=== PATIENT | male | born 1985 | race Caucasian/White ===

== ENCOUNTER 2017-01-26 16:21 | Emergency (ER) | payer BC ==
[2017-01-26 16:34] VITALS: BP 149/93
--- NOTE | 2017-01-26 17:05 | ERNOTE ---
Lower Extremity HPI - General Lower Extremities Pain: ankle: right Time Seen by Provider: 01/26/17 16:49 Source: patient Exam Limitations: no limitations - Immun/Allergies/Home Medications Immunizations: IMMUNIZATION HX Immunizations Up to Date Yes History of Influenza Vaccine Yes Hx Pneumococcal Vaccination Yes Allergies/Adverse Reactions: Allergies Allergy/AdvReac Type Severity Reaction Status Date / Time No Known Allergies Allergy Verified 01/26/17 16:34 Home Medications: HOME MEDICATIONS NK [No Home Medication] 01/26/17 [Last Taken Unknown] - History of Present Illness Narrative: Patient sprained his ankle playing softball and while is able to walk on it he still has some persistent pain after the event happened 5 days ago. He rates the pain as mild he is able to walk on it was a little work however. Occurred: last week Location of Incident: [place] Method of Injury: Reports: twisted Loss of Consciousness: Reports: no loss of consciousness Review of Systems - Review of Systems Constitutional: Present: See HPI EYE: Present: no symptoms reported ENT: Present: no symptoms reported Respiratory: Present: no symptoms reported Cardiology: Present: no symptoms reported Gastrointestinal/Abdominal: Present: no symptoms reported Genitourinary: Present: no symptoms reported Musculoskeletal: Present: See HPI Skin: Present: no symptoms reported Neurological: Present: no symptoms reported Endocrine: Present: no symptoms reported Hematologic/Lymphatic: Present: no symptoms reported Psych: Present: no symptoms reported - Patient's Past Medical History Patient History - Medical: No pertinent hx, Other Patient History - Cardiac/Respiratory: No pertinent hx Patient History - Cancer: No Hx of Cancer Patient History - Surgical Procedures: Appendectomy, Ear Tubes Patient History - Other: None - Family History Father Family History - Medical: Diabetes Type 2 Family History - Cardiac/Respiratory: Hyperlipidemia, Sleep Apnea Mother Family History - Medical: No pertinent hx Family History - Cardiac/Respiratory: Hyperlipidemia Brother Family History - Medical: No pertinent hx Family History - Cardiac/Respiratory: Sleep Apnea - Social History Living Situations: home Abuse History: No History of abuse Psych History: No pertinent hx Alcohol Use: none Drug Use: none - Immunizations Immunizations Up to Date: Yes Hx Pneumococcal Vaccination: Yes History of Influenza Vaccine: Yes Physical Exam - Physical Exam General Appearance: Present: wd/wn, alert, mild distress Eye Exam: Normal inspection: bilateral, PERRL: bilateral Ears, Nose, Throat: Present: normal ENT inspection, H, normal pharynx Neck: Present: normal inspection, nontender Respiratory: Present: no respiratory distress, normal breath sounds, no accessory muscle use, chest nontender, lungs clear Cardiovascular/Chest: Present: regular rate, rhythm, no murmur, normal peripheral pulses Gastrointestinal/Abdominal: Present: normal bowel sounds, nontender, nondistended, soft, no organomegaly Rectal Exam: Present: deferred Back Exam: Present: normal inspection, normal range of motion Extremity Exam: Present: non-tender, normal range of motion, no edema, other - patient has mild tenderness around the right lateral malleolus. Neurological Exam: Present: alert, oriented, normal mood/affect Skin Exam: Present: normal color, warm/dry Lymphatic Exam: Present: no adenopathy ED Progress - Vital Signs Patient's Vital Signs:: I have reviewed the patient's vital signs. Vital Signs: Vital Signs 01/26/17 16:27 Temperature 37.2 C Pulse Rate 67 Respiratory 16 Rate Blood Pressure 149/93 O2 Sat by Pulse 98 Oximetry - X-Ray X-Ray #1 X-Ray: ankle Interpretation: Reviewed by me - Progress/Reassessment Chief Complaint: Ankle Injury/ Pain Plan - Plan Plan: Patient declined an ankle brace and stated he had Aleve at home which should suffice for the pain. He agrees to follow-up with his family physician as needed Departure Clinical Impression: Ankle sprain Qualifiers: Encounter type: initial encounter Involved ligament of ankle: deltoid ligament Laterality: right Qualified Code(s): S93.421A - Sprain of deltoid ligament of right ankle, initial encounter - Departure Disposition: Home self-care Condition: Good Instructions: Ankle Sprain, [id number] Referrals: Kevon Wahl DO [Primary Care Provider] -
== END 2017-01-26 17:11 | disposition home or self-care (01) ==
LOC: ER 16:21
DX: S93.421A Sprain of deltoid ligament of right ankle, initial encounter (principal); X50.0XXA Overexertion from strenuous movement or load, initial encounter; Y93.64 Activity, baseball; Y92.830 Public park as the place of occurrence of the external cause